=== PATIENT | male | born 1965 | race Caucasian/White ===

== ENCOUNTER 2017-11-28 11:40 | Inpatient (IN) ==
[2017-11-28] MEDS ORDERED: Lidocaine PF 1% Inj 5 ML Syringe INFILTRATN ONE (12:00)
[2017-11-28] MEDS ORDERED: Succinylcholine Inj 100 MG/5 ML Syringe IV.PUSH ONE (12:00)
[2017-11-28] MEDS ORDERED: Glycopyrrolate Inj 1 MG/5 ML Syringe IV.PUSH ONE (12:00)
[2017-11-28] MEDS ORDERED: Neostigmine Inj 5 MG/5 ML Syringe IV.PUSH ONE (12:00)
[2017-11-28] MEDS ORDERED: Chlorhexidine Gluconate 2% 1 Pack (2 Cloths) TOPICAL SCH (12:45)
[2017-11-28] MEDS ORDERED: Metoprolol Tartrate 25 MG Tablet PO SCH (12:45)
[2017-11-28] MEDS ORDERED: Dextrose 5%/NaCl 0.9% Inj 1,000 ML IV.CONT SCH (12:45)
[2017-11-28] MEDS ORDERED: Sodium Chlor 0.9% Inj 500 ML IV.SIG SCH (13:00)
[2017-11-28 13:21] LABS: Bilirubin,Urine Negative (Negative); Clarity,Urine Hazy (Clear); Color,Urine Amber (Yellw/Straw); Glucose,Urine (UA) 500 or Greater mg/dL (Negative); Leukocyte Esterase,Urine Trace (Negative); Nitrite,Urine Negative (Negative)
[2017-11-28] MEDS ORDERED: ceFAZolin 2 GM/NS 100 ML IV; Q8H IV.SIG ONE ×2 (14:00)
[2017-11-28] MEDS ORDERED: Naloxone Inj 0.4 MG/ML Vial IV.PUSH PRN (15:09)
[2017-11-28] MEDS ORDERED: HYDROmorphone PCA Inj 6 MG/30 ML PCA.VIAL PCA PRN (15:09)
[2017-11-28] MEDS ORDERED: fentaNYL Citrate Inj 100 MCG/2 ML Ampul ONE ×2 (15:19)
[2017-11-28] MEDS ORDERED: *Meperidine Inj 25 MG/ML Vial PERIprocedural Use ONLY ONE (15:20)
[2017-11-28] MEDS ORDERED: *Labetalol HCl Inj 100 MG/20 ML Vial PERIprocedural Use ONLY IV.PUSH ONE (15:31)
[2017-11-28] MEDS ORDERED: HYDROmorphone PCA Inj 6 MG/30 ML PCA.VIAL PCA ONE (15:35)
[2017-11-28] MEDS ORDERED: *Enalaprilat Inj 1.25 MG/ML Vial IV.PUSH ONE (16:03)
[2017-11-28 16:16] LABS: Baso # (Auto) 0.1 th/mm3 (0.0-0.2); Baso % (Auto) 0.9 % (0.0-2.0); Eos # (Auto) 0.2 th/mm3 (0.0-0.4); Eos % (Auto) 2.4 % (0.0-4.0); Hematocrit 44.3 % (39.0-51.0); Hemoglobin 15.7 gm/dL (13.0-17.0); Lymph # (Auto) 1.1 th/mm3 (1.0-4.8); Lymph % (Auto) 13.7 % (9.0-44.0); Mean Corpuscular HGB Conc 35.6 % (32.0-36.0); Mean Corpuscular Hemoglobin 30.8 pg (27.0-34.0); Mean Corpuscular Volume 86.5 fL (80.0-100.0); Mean Platelet Volume 7.6 fL (7.0-11.0); Mono # (Auto) 0.2 th/mm3 (0.0-0.9); Neut # (Auto) 6.2 th/mm3 (1.8-7.7); Platelet Count 181 th/mm3 (150-450); Red Blood Count 5.12 mil/mm3 (4.50-5.90); Red Cell Distribution Width 12.7 % (11.6-17.2); White Blood Count 7.7 th/mm3 (4.0-11.0)
[2017-11-28 16:35] LABS: Calcium 8.1 mg/dL (8.5-10.1); Carbon Dioxide 20.4 meq/L (21.0-32.0); Potassium 4.3 meq/L (3.5-5.1)
[2017-11-28] MEDS: Dextrose 5%/NaCl 0.9% Inj 1,000 ML IV.CONT SCH (17:16)
[2017-11-28] MEDS: Ciprofloxacin 400 MG/200 ML 400 MG/200 ML PIGGYBACK IV.SIG SCH (17:21)
[2017-11-28] MEDS: Famotidine PF Inj 20 MG/2 ML Vial IV.PUSH SCH (22:00)
[2017-11-29] MEDS: Dextrose 5%/NaCl 0.9% Inj 1,000 ML IV.CONT SCH ×2 (00:50→10:56)
[2017-11-29 05:11] LABS: Baso % (Auto) 0.1 % (0.0-2.0); Eos % (Auto) 0.1 % (0.0-4.0); Hematocrit 45.5 % (39.0-51.0); Hemoglobin 15.9 gm/dL (13.0-17.0); Lymph # (Auto) 1.2 th/mm3 (1.0-4.8); Lymph % (Auto) 8.8 % (9.0-44.0); Mean Corpuscular Hemoglobin 30.6 pg (27.0-34.0); Mean Corpuscular Volume 87.5 fL (80.0-100.0); Mean Platelet Volume 7.7 fL (7.0-11.0); Mono # (Auto) 0.9 th/mm3 (0.0-0.9); Mono % (Auto) 6.3 % (0.0-8.0); Neut # (Auto) 11.9 th/mm3 (1.8-7.7); Neut % (Auto) 84.7 % (16.0-70.0); Platelet Count 218 th/mm3 (150-450); Red Cell Distribution Width 12.6 % (11.6-17.2)
[2017-11-29 05:19] LABS: Calcium 8.1 mg/dL (8.5-10.1); Carbon Dioxide 24.7 meq/L (21.0-32.0); Potassium 4.6 meq/L (3.5-5.1)
[2017-11-29] MEDS: Ciprofloxacin 400 MG/200 ML 400 MG/200 ML PIGGYBACK IV.SIG SCH (05:59)
--- NOTE | 2017-11-29 06:52 | MP ---
cc: Michelle Bose MD DATE OF OPERATION: 11/28/2017 PREPROCEDURE DIAGNOSIS: History of colon stricture. POSTPROCEDURE DIAGNOSIS: History of colon stricture. PROCEDURE PERFORMED: Resection with reanastomosis of ileostomy. SURGEON: Michelle Bose MD. ANESTHESIA: General per ET tube. ESTIMATED BLOOD LOSS: 50 mL. OPERATIVE INDICATIONS: The patient is a 52-year-old male with a history of a colon stricture not quite 2 years ago, who came in emergently with a partial obstruction. He underwent resection with reanastomosis and proximal diversion. He comes in today for a reanastomosis of his ileostomy. OPERATIVE COURSE: The patient was brought to the operating room, and placed in the supine position. After induction of general anesthesia, the stoma was sutured closed. The skin surrounding the stoma was prepped and draped in the usual sterile fashion. A lenticular incision was then made around the ileostomy, in the transverse direction. Using electrocautery, dissection was carried down to the fascia of the anterior abdominal wall, where he was noted to have a moderate-sized hernia. Eventually, we were able to dissect free around the hernia down to the level of the fascia. The fascia was cleared circumferentially both superficially and deep, and I was then able to prolapse the stoma, with the surrounding small bowel, out of the fascial defect. A site was then chosen for proximal and distal division of the bowel. The mesentery was opened at these sites and a blue load of the JOHNNY 55 stapler was placed across the bowel at these levels. This was closed, fired, and removed. The intervening mesentery was divided and ligated using #0 Vicryl ties, and the specimen was taken to the back table where it was sent for pathology. The antimesenteric corners of the staple lines were then removed. One limb of the of the gastrointestinal stapler was placed down each limb of the bowel. This was then closed along the antimesenteric border, fired, and removed, thus creating an enteroenterotomy. The resulting enterotomy was closed transversely using the TX 60 stapling device. At the end of the procedure, the anastomosis was palpated and found to be widely patent. Two small areas of bleeding on the anastomosis were controlled in a figure-of-8 fashion using 3-0 Vicryl. The small bowel was then gently prolapsed back into the peritoneal cavity. The posterior fascia was then closed in a running fashion using #1 PDS, and the anterior fascia was closed in a running fashion using #1 PDS. The hernia sac was then excised using electrocautery. Hemostasis was obtained with electrocautery. The wound was then irrigated with warm normal saline and the subcutaneous tissue was reapproximated in an interrupted fashion. The skin was closed in a running subcuticular fashion using 3-0 Vicryl. A sterile dressing was then applied. All sponge, needle, and instrument counts were correct and the patient was returned to the Postanesthesia Care Unit in a stable condition. MD ELADIO Evans/josey , 03:01 PM , 03:29 PM DARIUS
--- NOTE | 2017-11-29 10:04 | P.PN ---
Subjective Interval history: POD#1 s/p ileostomy closure comfortable Physical Exam Vital signs: Vital Signs 11/28/17 12:35 11/28/17 15:08 11/28/17 15:15 Temperature 97.9 F Pulse Rate 85 77 85 Respiratory Rate 20 19 20 Blood Pressure 150/83 H 136/82 179/106 H Pulse Oximetry 98 99 98 11/28/17 15:30 11/28/17 15:45 11/28/17 16:00 Temperature Pulse Rate 69 77 67 Respiratory Rate 20 16 20 Blood Pressure 184/102 H 169/86 H 176/105 H Pulse Oximetry 98 99 98 11/28/17 16:15 11/28/17 16:30 11/28/17 17:00 Temperature Pulse Rate 68 72 72 Respiratory Rate 15 15 17 Blood Pressure 167/96 H 165/94 H 169/92 H Pulse Oximetry 100 100 100 11/28/17 18:00 11/28/17 19:00 11/28/17 20:00 Temperature 98.1 F Pulse Rate 80 88 87 Respiratory Rate 15 22 20 Blood Pressure 157/86 H 161/85 H 154/82 H Pulse Oximetry 100 100 100 11/28/17 22:05 11/29/17 00:35 11/29/17 04:58 Temperature 97.3 F L 96.7 F L Pulse Rate 79 74 Respiratory Rate 17 18 Blood Pressure 177/86 H 143/88 H 157/77 H Pulse Oximetry 96 96 11/29/17 07:51 Temperature 97.9 F Pulse Rate 63 Respiratory Rate 18 Blood Pressure 175/99 H Pulse Oximetry 98 Intake & Output 11/28/17 11/29/17 11/29/17 18:59 06:59 18:59 Intake Total 1500 / 1500 2680 / 2680 200 / 200 Output Total 750 / 750 1600 / 1600 Balance 750 / 750 1080 / 1080 200 / 200 Weight 91.8 kg 92 kg Intake: IV 300 / 300 2200 / 2200 200 / 200 D5W/Normal Saline Inj 1,000 ML 1000 / 1000 @ 125 mls/hr IV.CONT .Q8H ALYCE Rx#:[id number] Cipro 400 MG/200 ML Inj 400 mg 200 / 200 200 / 200 In 200 ml @ 200 mls/hr IV.SIG Q12H ALYCE Rx#:[id number] LR 1000 mL Inj 1,000 ML @ 30 1000 / 1000 mls/hr IV.SIG .Q24H ALYCE Rx#: [id number] Flagyl 500 MG Inj 100 ML @ 200 100 / 100 200 / 200 mls/hr IV.SIG Q8H ALYCE Rx#: [id number] Oral 480 / 480 Anesthesia Amount 1200 / 1200 Output: Urine 700 / 700 1600 / 1600 Estimated Blood Loss 50 / 50 Other: # Voids 1 Weight On Admission 91.8 kg - Routine Abdominal Exam Comments: dressing c/d/i abdomen soft, nondistended, tender Results - Labs CBC & Chem 7: 11/29/17 04:38 11/29/17 04:38 Laboratory Results - last 24 hr 11/28/17 11/28/17 11/28/17 12:30 12:35 15:56 WBC 7.7 RBC 5.12 Hgb 15.7 Hct 44.3 MCV 86.5 MCH 30.8 MCHC 35.6 RDW 12.7 Plt Count 181 MPV 7.6 Neut % (Auto) 81.0 H Lymph % (Auto) 13.7 [place] % (Auto) 2.0 Eos % (Auto) 2.4 Baso % (Auto) 0.9 Neut # (Auto) 6.2 Lymph # (Auto) 1.1 [place] # (Auto) 0.2 Eos # (Auto) 0.2 Baso # (Auto) 0.1 WBC Differential . Differential Comment Auto diff final Sodium Potassium Chloride Carbon Dioxide Anion Gap BUN Creatinine Estimated GFR Random Glucose Calcium Urine Color Dasha Urine Clarity Hazy H Urine pH 5.0 Ur Specific Harlan 1.040 H Urine Protein 30 H Urine Glucose (UA) 500 or greater Urine Ketones 20 Urine Occult Blood Negative Urine Nitrate Negative Urine Bilirubin Negative Urine Urobilinogen 2.0 H Ur Leukocyte Esterase Trace H Blood Type AB Negative Antibody Screen Negative 11/28/17 11/29/17 11/29/17 15:56 04:38 04:38 WBC 14.0 H D RBC 5.20 Hgb 15.9 Hct 45.5 MCV 87.5 MCH 30.6 MCHC 35.0 RDW 12.6 Plt Count 218 MPV 7.7 Neut % (Auto) 84.7 H Lymph % (Auto) 8.8 L [place] % (Auto) 6.3 Eos % (Auto) 0.1 Baso % (Auto) 0.1 Neut # (Auto) 11.9 H Lymph # (Auto) 1.2 [place] # (Auto) 0.9 Eos # (Auto) 0.0 Baso # (Auto) 0.0 WBC Differential . Differential Comment Auto diff final Sodium 133 L 138 Potassium 4.3 4.6 Chloride 101 103 Carbon Dioxide 20.4 L 24.7 Anion Gap 12 10 BUN 12 10 Creatinine 0.95 0.99 Estimated GFR 84 L 80 L Random Glucose 349 H 295 H Calcium 8.1 L 8.1 L Urine Color Urine Clarity Urine pH Ur Specific [place] Urine Protein Urine Glucose (UA) Urine Ketones Urine Occult Blood Urine Nitrate Urine Bilirubin Urine Urobilinogen Ur Leukocyte Esterase Blood Type Antibody Screen Assessment and Plan - Assessment (1) Colon stricture Code(s): K56.699 - Other intestinal obstruction unspecified as to partial versus complete obstruction Status: Acute - Plan Advance diet Mobilize Decrease IVF
[2017-11-29] MEDS: Heparin - SQ 10,000 UNITS/ML Vial SQ SCH ×2 (10:48→21:16)
[2017-11-29] MEDS: Famotidine PF Inj 20 MG/2 ML Vial IV.PUSH SCH ×2 (10:48→21:15)
[2017-11-29] MEDS: Sod Chloride 0.9% Inj 1,000 ML IV.CONT SCH (11:21)
[2017-11-29] MEDS ORDERED: Labetalol 100 MG Tablet PO ONE (15:00)
[2017-11-30 06:45] LABS: Baso % (Auto) 0.4 % (0.0-2.0); Eos # (Auto) 0.2 th/mm3 (0.0-0.4); Eos % (Auto) 1.4 % (0.0-4.0); Hematocrit 44.4 % (39.0-51.0); Hemoglobin 15.8 gm/dL (13.0-17.0); Lymph # (Auto) 1.8 th/mm3 (1.0-4.8); Lymph % (Auto) 16.6 % (9.0-44.0); Mean Corpuscular HGB Conc 35.5 % (32.0-36.0); Mean Corpuscular Hemoglobin 31.1 pg (27.0-34.0); Mean Corpuscular Volume 87.5 fL (80.0-100.0); Mean Platelet Volume 7.8 fL (7.0-11.0); Mono # (Auto) 0.8 th/mm3 (0.0-0.9); Mono % (Auto) 7.6 % (0.0-8.0); Neut # (Auto) 8.1 th/mm3 (1.8-7.7); Platelet Count 188 th/mm3 (150-450); Red Blood Count 5.08 mil/mm3 (4.50-5.90); Red Cell Distribution Width 12.9 % (11.6-17.2); White Blood Count 10.9 th/mm3 (4.0-11.0)
[2017-11-30 07:09] LABS: Anion Gap 14 meq/L (5-15); Blood Urea Nitrogen 8 mg/dL (7-18); Calcium 8.3 mg/dL (8.5-10.1); Carbon Dioxide 25.4 meq/L (21.0-32.0); Chloride 100 meq/L (98-107); Glomerular Filtration Rate Greater Than 89 mL/min (>89); Glucose,Random 204 mg/dL (74-106); Potassium 3.6 meq/L (3.5-5.1); Sodium 139 meq/L (136-145)
[2017-11-30] MEDS: Sod Chloride 0.9% Inj 1,000 ML IV.CONT SCH (10:12)
[2017-11-30] MEDS: Heparin - SQ 10,000 UNITS/ML Vial SQ SCH ×2 (10:12→21:37)
[2017-11-30] MEDS: Famotidine PF Inj 20 MG/2 ML Vial IV.PUSH SCH ×2 (10:12→21:37)
--- NOTE | 2017-11-30 13:41 | P.PN ---
Subjective Interval history: POD#2 s/p ileostomy closure comfortable Physical Exam Vital signs: Vital Signs 11/29/17 17:16 11/29/17 20:00 11/30/17 00:15 Temperature 97.1 F L 98.8 F Pulse Rate 83 97 H 98 H Respiratory Rate 20 20 Blood Pressure 166/94 H 155/70 H 163/98 H Pulse Oximetry 92 L 95 11/30/17 08:00 Temperature 97.7 F Pulse Rate 101 H Respiratory Rate 19 Blood Pressure 192/105 H Pulse Oximetry 95 Intake & Output 11/29/17 11/30/17 11/30/17 18:59 06:59 18:59 Intake Total 1060 / 1060 480 / 480 1000 / 1000 Output Total 700 / 700 Balance 1060 / 1060 -220 / -220 1000 / 1000 Weight 89.4 kg Intake: IV 300 / 300 1000 / 1000 NS Inj 1,000 ML @ 50 mls/hr IV. 1000 / 1000 CONT .Q20H ALYCE Rx#:[id number] Cipro 400 MG/200 ML Inj 400 mg 200 / 200 In 200 ml @ 200 mls/hr IV.SIG Q12H ALYCE Rx#:[id number] Flagyl 500 MG Inj 100 ML @ 200 100 / 100 mls/hr IV.SIG Q8H ALYCE Rx#: [id number] Oral 760 / 760 480 / 480 Output: Urine 700 / 700 Other: # Voids 4 # Bowel Movements 0 - Routine Abdominal Exam Comments: soft, nondistended, tender wound clean Results - Labs CBC & Chem 7: 11/30/17 05:25 11/30/17 03:25 Laboratory Results - last 24 hr 11/30/17 11/30/17 03:25 05:25 WBC 10.9 RBC 5.08 Hgb 15.8 Hct 44.4 MCV 87.5 MCH 31.1 MCHC 35.5 RDW 12.9 Plt Count 188 MPV 7.8 Prelim Diff (Auto) Slide review pending Neut % (Auto) 74.0 H Lymph % (Auto) 16.6 [place] % (Auto) 7.6 Eos % (Auto) 1.4 Baso % (Auto) 0.4 Neut # (Auto) 8.1 H Lymph # (Auto) 1.8 [place] # (Auto) 0.8 Eos # (Auto) 0.2 Baso # (Auto) 0.0 WBC Differential . Diff Scan Auto diff confirmed Differential Comment . Sodium 139 Potassium 3.6 D Chloride 100 Carbon Dioxide 25.4 Anion Gap 14 BUN 8 Creatinine 0.84 Estimated GFR Greater than 89 Random Glucose 204 H Calcium 8.3 L Assessment and Plan - Assessment (1) Colon stricture Code(s): K56.699 - Other intestinal obstruction unspecified as to partial versus complete obstruction Status: Acute - Plan Doing well Home today Followup with Dr. Yeh regarding BP Followup with me 3 weeks
[2017-11-30] MEDS ORDERED: Metoprolol Tartrate 50 MG Tablet PO ONE (21:30)
[2017-12-01] MEDS: Sod Chloride 0.9% Inj 1,000 ML IV.CONT SCH (05:19)
[2017-12-01] MEDS: Heparin - SQ 10,000 UNITS/ML Vial SQ SCH (08:40)
[2017-12-01] MEDS: Famotidine PF Inj 20 MG/2 ML Vial IV.PUSH SCH (08:40)
--- NOTE | 2018-01-10 10:48 | MD ---
cc: Michelle Bose MD DATE OF DISCHARGE: 12/01/2017 ADMISSION DIAGNOSIS: History of colon stricture secondary to diverticulitis. DISCHARGE DIAGNOSIS: History of colon stricture secondary to diverticulitis. PROCEDURE PERFORMED: Resection with reanastomosis of ileostomy. HOSPITAL COURSE: The patient is a 52-year-old male with a previous history of a colon stricture with partial obstruction, which had been emergently resected 2 years previously. At that time, he had undergone resection with reanastomosis and proximal diversion. He was admitted to the hospital on 11/28/2017. He was taken to the operating room where he underwent the above-named procedures. Postoperatively, he did well with rapid return of bowel and bladder function. He was discharged home on postoperative day #2 with instructions to followup with myself in the office. MD ELADIO Evans/jose luis , 10:25 AM , 10:30 AM [email or web address]
== END 2017-12-01 15:28 | disposition home or self-care (01) ==
LOC: HSDI 11:40 → N07 21:41
PROVIDERS: ADMIT Colon & Rectal Surgery; ATTEND Colon & Rectal Surgery